=== PATIENT | male | born 1985 | race Caucasian/White ===

== ENCOUNTER 2018-12-31 15:53 | Emergency (ER) | payer SELFPAY ==
[~2018-12-31] VITALS: Ht 180 cm; Wt 82.0 kg
[2018-12-31] MEDS ORDERED: ONDANSETRON 4 MG (ZOFRAN) ORAL DISSOLVE TAB PO ONE (16:30)
[2018-12-31 16:40] LABS: BASOPHILS # (AUTO) 0.1 10^3/uL (0.0-0.1); BASOPHILS % (AUTO) 1 % (0-10); EOSINOPHILS # (AUTO) 0.3 10^3/uL (0.0-0.3); EOSINOPHILS % (AUTO) 3 % (0-10); HEMATOCRIT 40 % (40-54); HEMOGLOBIN 13.9 G/DL (13.3-17.7); LYMPHOCYTES # (AUTO) 2.5 X 10^3 (1.0-4.0); LYMPHOCYTES % (AUTO) 25 % (12-44); MEAN CORPUSCULAR HEMOGLOBIN 29 PG (25-34); MEAN CORPUSCULAR HGB CONC 35 G/DL (32-36); MEAN CORPUSCULAR VOLUME 84 FL (80-99); MEAN PLATELET VOLUME 9.7 FL (7.4-10.4); MONOCYTES # (AUTO) 1.1 X 10^3 (0.0-1.0); MONOCYTES % (AUTO) 12 % (0-12); NEUTROPHILS # (AUTO) 5.9 X 10^3 (1.8-7.8); NEUTROPHILS % (AUTO) 60 % (42-75); PLATELET COUNT 303 10^3/uL (130-400); RED CELL DISTRIBUTION WIDTH 13.3 % (10.0-14.5); WHITE BLOOD COUNT 9.8 10^3/uL (4.3-11.0)
[2018-12-31 16:54] LABS: ALANINE AMINOTRANSFERASE 19 U/L (0-55); ALKALINE PHOSPHATASE 62 U/L (40-136); BILIRUBIN,TOTAL 0.3 MG/DL (0.1-1.0); BUN/CREATININE RATIO 10; CALCIUM 9.2 MG/DL (8.5-10.1); CARBON DIOXIDE 28 MMOL/L (21-32); CHLORIDE 106 MMOL/L (98-107); CREATININE SERUM 0.82 MG/DL (0.60-1.30); GFR ESTIMATED > 60; GLUCOSE 89 MG/DL (70-105); LIPASE 23 U/L (8-78); POTASSIUM 4.2 MMOL/L (3.6-5.0); SODIUM 139 MMOL/L (135-145); TOTAL PROTEIN 6.7 GM/DL (6.4-8.2)
--- NOTE | 2018-12-31 16:57 | ED GI ---
General Chief Complaint: Abdominal/GI Problems Stated Complaint: VOMITTING Nursing Triage Note: PT AMBULATE TO ROOM 07 WITHOUT DIFFICULTY. PT STATES NAUSEA SINCE THIS MORNING AND VOMITED X1 AT WORK [employer] LIGHT. Sepsis Screen: No Definite Risk Source of Information: Patient, Caregiver Exam Limitations: No Limitations History of Present Illness Date Seen by Provider: Dec 31, 2018 Time Seen by Provider: 16:56 Initial Comments To ER by private vehicle with reports of nausea, vomited once at work. This began on the drive home from [place] this morning, feels a little better now. No diarrhea no fevers or chills otherwise fine. Timing/Duration: 4-6 Hours Severity/Quality: Moderate Radiation: No Radiation Activities at Onset: None Allergies and Home Medications Allergies Coded Allergies: Pertussis Vaccines (Verified Allergy, Unknown, 12/31/18) Home Medications Ondansetron 8 Mg Tab.rapdis, 8 MG PO Q6H PRN for NAUSEA/VOMITING-1ST LINE Prescribed by: FABIO RAMOS on 12/31/18 1700 Patient Home Medication List Home Medication List Reviewed: Yes Review of Systems Review of Systems Constitutional: see HPI EENTM: No Symptoms Reported Respiratory: No Symptoms Reported Cardiovascular: No Symptoms Reported Gastrointestinal: See HPI; Denies Abdominal Pain, Denies Constipated, Denies Diarrhea; Nausea, Vomiting Genitourinary: No Symptoms Reported Musculoskeletal: no symptoms reported Skin: no symptoms reported Psychiatric/Neurological: No Symptoms Reported Endocrine: No Symptoms Reported Hematologic/Lymphatic: No Symptoms Reported Past Plvpnxs-Ogpmpw-Nohxte Hx Patient Social History Alcohol Use: Regular Use Alcohol Beverage of Choice: Beer Recreational Drug Use: No Smoking Status: Current Everyday Smoker Type Used: Cigars 2nd Hand Smoke Exposure: Yes Recent Foreign Travel: No Contact w/Someone Who Travel: No Recent Infectious Disease Expo: No Recent Hopitalizations: No Physical Abuse: No Sexual Abuse: No Mistreated: No Fear: No Seasonal Allergies Seasonal Allergies: No Past Medical History Surgeries: Yes (SKIN GRAFT, SCREW PUT IN LEFT WRIST) Respiratory: No Cardiac: No Neurological: Yes (HX OF SEIZURES) Sexually Transmitted Disease: No Genitourinary: No Gastrointestinal: No Musculoskeletal: No Endocrine: No HEENT: No Loss of Vision: Denies Hearing Impairment: Denies Cancer: No Psychosocial: Yes Bipolar Integumentary: No Blood Disorders: No Physical Exam Vital Signs Vital Signs - First Documented 12/31/18 16:10 Temp 36.3 Pulse 77 Resp 16 B/P (MAP) 113/64 (80) Pulse Ox 93 O2 Delivery Room Air Capillary Refill : Less Than 3 Seconds Height/Weight/BMI Height: '" Weight: lbs. oz. kg; 25.00 BMI Method: General Appearance: WD/WN, no apparent distress HEENT: PERRL/EOMI, normal ENT inspection Respiratory: no respiratory distress, no accessory muscle use Cardiovascular: regular rate, rhythm, no murmur Gastrointestinal: normal bowel sounds, non tender, soft Extremities: normal range of motion, non-tender Neurologic/Psychiatric: alert, normal mood/affect, oriented x 3 Skin: normal color, warm/dry ( and) Progress/Results/Core Measures Results/Orders Lab Results Laboratory Tests Test 12/31/18 16:28 Range/Units White Blood Count 9.8 4.3-11.0 10^3/uL Red Blood Count 4.73 4.35-5.85 10^6/uL Hemoglobin 13.9 13.3-17.7 G/DL Hematocrit 40 40-54 % Mean Corpuscular Volume 84 80-99 FL Mean Corpuscular Hemoglobin 29 25-34 PG Mean Corpuscular Hemoglobin Concent 35 32-36 G/DL Red Cell Distribution Width 13.3 10.0-14.5 % Platelet Count 303 130-400 10^3/uL Mean Platelet Volume 9.7 7.4-10.4 FL Neutrophils (%) (Auto) 60 42-75 % Lymphocytes (%) (Auto) 25 12-44 % Monocytes (%) (Auto) 12 0-12 % Eosinophils (%) (Auto) 3 0-10 % Basophils (%) (Auto) 1 0-10 % Neutrophils # (Auto) 5.9 1.8-7.8 X 10^3 Lymphocytes # (Auto) 2.5 1.0-4.0 X 10^3 Monocytes # (Auto) 1.1 H 0.0-1.0 X 10^3 Eosinophils # (Auto) 0.3 0.0-0.3 10^3/uL Basophils # (Auto) 0.1 0.0-0.1 10^3/uL Sodium Level 139 135-145 MMOL/L Potassium Level 4.2 3.6-5.0 MMOL/L Chloride Level 106 98-107 MMOL/L Carbon Dioxide Level 28 21-32 MMOL/L Anion Gap 5 5-14 MMOL/L Blood Urea Nitrogen 8 7-18 MG/DL Creatinine 0.82 0.60-1.30 MG/DL Estimat Glomerular Filtration Rate > 60 BUN/Creatinine Ratio 10 Glucose Level 89 70-105 MG/DL Calcium Level 9.2 8.5-10.1 MG/DL Corrected Calcium 9.2 8.5-10.1 MG/DL Total Bilirubin 0.3 0.1-1.0 MG/DL Aspartate Amino Transf (AST/SGOT) 18 5-34 U/L Alanine Aminotransferase (ALT/SGPT) 19 0-55 U/L Alkaline Phosphatase 62 40-136 U/L Total Protein 6.7 6.4-8.2 GM/DL Albumin 4.0 3.2-4.5 GM/DL Lipase 23 8-78 U/L My Orders Orders - FABIO RAMOS IP TECHNOLOGY TRANSACTIONS ATTORNEY Cbc With Automated Diff (12/31/18 16:30) Comprehensive Metabolic Panel (12/31/18 16:30) Lipase (12/31/18 16:30) Ondansetron Oral Dissolve Tab (Zofran (12/31/18 16:30) Medications Given in ED Current Medications Medications Dose Ordered Sig/Iglesia Route Start Time Stop Time Status Last Admin Dose Admin Ondansetron HCl 8 mg ONCE ONCE PO 12/31/18 16:30 12/31/18 16:32 DC 12/31/18 16:36 8 MG Vital Signs/I&O 12/31/18 16:10 Temp 36.3 Pulse 77 Resp 16 B/P (MAP) 113/64 (80) Pulse Ox 93 O2 Delivery Room Air Blood Pressure Mean: 80 Departure Impression Primary Impression: Nausea and vomiting Disposition: 01 HOME, SELF-CARE Condition: Stable Departure-Patient Inst. Decision time for Depature: 16:58 Referrals: NO,LOCAL PHYSICIAN (PCP/Family) Primary Care Physician Patient Instructions: Nausea and Vomiting, Adult Add. Discharge Instructions: 1. Return to ER for any worsening, follow-up with your doctor later this week for recheck. Nausea medication as needed. Small frequent sips of liquids, Pedialyte or Gatorade are fine. All discharge instructions reviewed with patient and/or family. Voiced understanding. Scripts Ondansetron (Ondansetron Odt) 8 Mg Tab.rapdis 8 MG PO Q6H PRN for NAUSEA/VOMITING-1ST LINE, #10 TAB Prov: FABIO RAMOS APRN 12/31/18 Work/School Note: Work Release Form Date Seen in the Emergency Department: Dec 31, 2018 Return to Work: Jan 01, 2019 FABIO RAMOS APRN Dec 31, 2018 16:57
[2018-12-31] MEDS ORDERED: ONDA8TAB13 PO (17:00)
[2018-12-31 17:09] VITALS: BP 121/70
== END 2018-12-31 17:08 | disposition home or self-care (01) ==
LOC: ER 15:55
DX: R11.2 Nausea with vomiting, unspecified (principal); F31.9 Bipolar disorder, unspecified; F17.290 Nicotine dependence, other tobacco product, uncomplicated; Z88.7 Allergy status to serum and vaccine
CPT/HCPCS: 36415; 80053; 83690; 85025

== ENCOUNTER 2019-01-22 17:48 | Emergency (ER) | payer SELFPAY ==
[~2019-01-22] VITALS: Ht 180 cm; Wt 83.0 kg
[~2019-01-22 17:48] MED LIST: ONDA8TAB13 PO
[2019-01-22 18:41] LABS: BASOPHILS % (AUTO) 0 % (0-10); EOSINOPHILS # (AUTO) 0.2 10^3/uL (0.0-0.3); EOSINOPHILS % (AUTO) 2 % (0-10); HEMATOCRIT 39 % (40-54); HEMOGLOBIN 13.8 G/DL (13.3-17.7); LYMPHOCYTES # (AUTO) 2.7 X 10^3 (1.0-4.0); LYMPHOCYTES % (AUTO) 22 % (12-44); MEAN CORPUSCULAR HEMOGLOBIN 29 PG (25-34); MEAN CORPUSCULAR HGB CONC 35 G/DL (32-36); MEAN CORPUSCULAR VOLUME 82 FL (80-99); MEAN PLATELET VOLUME 10.5 FL (7.4-10.4); MONOCYTES % (AUTO) 8 % (0-12); NEUTROPHILS # (AUTO) 8.2 X 10^3 (1.8-7.8); NEUTROPHILS % (AUTO) 68 % (42-75); PLATELET COUNT 316 10^3/uL (130-400); RED CELL DISTRIBUTION WIDTH 13.3 % (10.0-14.5); WHITE BLOOD COUNT 12.1 10^3/uL (4.3-11.0)
[2019-01-22 18:46] LABS: PROTHROMBIN TIME PATIENT 13.6 SEC (12.2-14.7)
--- NOTE | 2019-01-22 18:50 | Diagnostic Imaging Report ---
INDICATION: Chest pain and shortness of air. TIME OF EXAM: 6:48 p.m. COMPARISON: No prior studies are available for comparison. FINDINGS: The heart size is normal. The pulmonary vascularity is unremarkable. The lungs are clear. No infiltrate, effusion or pneumothorax is detected. IMPRESSION: No acute cardiopulmonary process is detected. Dictated by: Dictated on workstation # [id number]
[2019-01-22 18:57] LABS: ALANINE AMINOTRANSFERASE 25 U/L (0-55); ALBUMIN 4.1 GM/DL (3.2-4.5); ALKALINE PHOSPHATASE 59 U/L (40-136); AMYLASE 43 U/L (25-125); BILIRUBIN,TOTAL 0.3 MG/DL (0.1-1.0); BUN/CREATININE RATIO 19; CALCIUM 9.2 MG/DL (8.5-10.1); CARBON DIOXIDE 20 MMOL/L (21-32); CHLORIDE 105 MMOL/L (98-107); CREATININE SERUM 0.94 MG/DL (0.60-1.30); GFR ESTIMATED > 60; GLUCOSE 140 MG/DL (70-105); LIPASE 16 U/L (8-78); MAGNESIUM 1.9 MG/DL (1.6-2.4); SODIUM 138 MMOL/L (135-145); TOTAL PROTEIN 6.8 GM/DL (6.4-8.2)
[2019-01-22 19:17] LABS: TSH (THYROID ANALYZER) 0.57 UIU/ML (0.35-4.94)
[2019-01-22 19:24] LABS: BILIRUBIN,URINE NEGATIVE (NEGATIVE); CLARITY,URINE CLEAR; COLOR,URINE YELLOW; GLUCOSE, URINE (UA) NEGATIVE (NEGATIVE); KETONES,URINE NEGATIVE (NEGATIVE); LEUKOCYTE ESTERASE ,URINE NEGATIVE (NEGATIVE); NITRITE,URINE NEGATIVE (NEGATIVE); PH,URINE 7 (5-9); PROTEIN,URINE NEGATIVE (NEGATIVE); UROBILINOGEN,URINE NORMAL (NORMAL)
--- NOTE | 2019-01-22 19:30 | ED General ---
General Chief Complaint: Psych/Social Disorder Stated Complaint: CHEST PAIN,SHAKY Nursing Triage Note: AMBULATED TO ROOM 07 WITH COMPLAINTS OF CHEST PAIN ET FEELING TINGLY ALL OVER. STATES HE WAS AT WORK ABOUT AN HOUR AGO WHEN THIS STARTED. HAS A HX OF ANXIETY AND THE LAST TIME THIS HAPPENED IT WAS ANXIETY. Nursing Sepsis Screen: No Definite Risk Source of Information: Patient History of Present Illness Date Seen by Provider: Jan 22, 2019 Time Seen by Provider: 18:30 Initial Comments PT ARRIVES VIA POV STATES HE WAS AT WORK AT [employer], WAS SHOOTING FOAM INTO [employer] DOOR, AND STARTED TO GET REAL SHAKEY STATES HE STARTED HAVING CHEST PAIN, AND WASN'T FEELING GOOD STATES SYMPTOMS BEGAN AROUND 1630 AND ARE NOW GONE CHEST WAS HURTING IN LEFT UPPER/ MIDLINE AREA WAS SHORT OF BREATH NO SWEATS + NAUSEA, NO VOMITING NO COUGH, NO FEVER OR RECENT ILLNESS HAS BEEN EATING AND DRINKING NORMALLY, ATE AROUND 1500 HAS HISTORY OF SAME, A FEW TIMES, BUT NOT THIS BAD. 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 PT HAS HISTORY OF IV DRUG USE, INCLUDING HEROIN, METH, OTHERS PT OCCASIONALLY DRINKS ALCOHOL, NONE RECENTLY PCP: NONE Allergies and Home Medications Allergies Coded Allergies: Pertussis Vaccines (Verified Allergy, Unknown, 12/31/18) Patient Home Medication List Home Medication List Reviewed: Yes Review of Systems Review of Systems Constitutional: see HPI; No chills, No diaphoresis, No dizziness EENTM: no symptoms reported Respiratory: see HPI, short of breath Cardiovascular: see HPI, chest pain; No edema, No palpitations, No syncope, No vascular heart diseas Gastrointestinal: see HPI; No abdominal pain, No constipation, No diarrhea, No loss of appetite; nausea; No vomiting Genitourinary: no symptoms reported Musculoskeletal: no symptoms reported Skin: no symptoms reported Psychiatric/Neurological: Anxiety; Denies Headache, Denies Numbness, Denies Paresthesia, Denies Seizure, Denies Tingling, Denies Weakness Hematologic/Lymphatic: No Symptoms Reported Immunological/Allergic: no symptoms reported Past Dpufgsz-Qdgyrq-Uxpejt Hx Past Med/Social Hx: Reviewed and Corrections made Patient Social History Alcohol Use: Occasionally Uses Alcohol Beverage of Choice: Beer Recreational Drug Use: Yes (+ IV HEROIN, METH, OTHERS. SMOKES MARIJUANA) Drug of Choice: +IV HEROIN, METH, OTHERS. SMOKES MARIJUANA Smoking Status: Current Everyday Smoker (1 PPD) Type Used: Cigars, Cigarettes (1 PPD) 2nd Hand Smoke Exposure: Yes Recent Foreign Travel: No Contact w/Someone Who Travel: No Recent Infectious Disease Expo: No Recent Hopitalizations: No Seasonal Allergies Seasonal Allergies: No Past Medical History Surgeries: Yes (SKIN GRAFT TO RIGHT LEG SECONDARY TO KING, SCREW PUT IN LEFT WRIST/SCAPHOID) Orthopedic Respiratory: No Cardiac: No Neurological: No (HX OF SEIZURES) Sexually Transmitted Disease: No Genitourinary: No Gastrointestinal: No Musculoskeletal: Yes (LEFT SCAPHOID FX/ORIF) Fractures Endocrine: No HEENT: No Loss of Vision: Denies Hearing Impairment: Denies Cancer: No Psychosocial: Yes (POLYSUBSTANCE ABUSE, INCLUDING + IV HEROIN , METH AND OTHERS, USES MARIJUANA. OCCASIONAL ETOH) Anxiety, Bipolar Integumentary: No Blood Disorders: No Physical Exam Vital Signs Vital Signs - First Documented 01/22/19 17:54 Temp 37.1 Pulse 82 Resp 16 B/P (MAP) 143/94 (110) Pulse Ox 99 O2 Delivery Room Air Capillary Refill : Less Than 3 Seconds Height, Weight, BMI Height: '" Weight: lbs. oz. kg; 25.00 BMI Method: General Appearance: No Apparent Distress, WD/WN HEENT: PERRL/EOMI, Other (EXTENSIVE DENTAL DECAY DOWN TO GUMS--"METH MOUTH" APPEARANCE) Neck: Full Range of Motion, Normal Inspection, Non Tender, Supple Respiratory: Normal Breath Sounds, No Accessory Muscle Use, No Respiratory Distress, Other (LEFT UPPER CHEST AND LEFT TRAPEZIUS MUSCLE TENDERNESS--PALPATION REPRODUCES PAIN) Cardiovascular: Regular Rate, Rhythm, No Edema, No JVD, No Murmur, Normal Peripheral Pulses Gastrointestinal: Normal Bowel Sounds, No Organomegaly, No Pulsatile Mass, Non Tender, Soft Back: Normal Inspection Extremity: Normal Capillary Refill, Normal Inspection, Normal Range of Motion, Non Tender, No Calf Tenderness, No Pedal Edema Neurologic/Psychiatric: Alert, Oriented x3, No Motor/Sensory Deficits, Normal Mood/Affect (SOMEWHAT FLAT AFFECT), teacher emotionally impaired II-XII Norm as Tested Skin: Normal Color, Warm/Dry, Tattoos/Piercings (EXTENSIVE TATTOOS OVER ENTIRE BODY) Progress/Results/Core Measures Suspected Sepsis Recent Fever Within 48 Hours: No Infection Criteria Present: None New/Unexplained Altered Menta: No Sepsis Screen: No Definite Risk SIRS Temperature: Pulse: 82 Respiratory Rate: 16 Laboratory Tests 01/22/19 18:02: White Blood Count 12.1H Blood Pressure 143 /94 Mean: 110 Laboratory Tests 01/22/19 18:02: Creatinine 0.94, INR Comment 1.0, Platelet Count 316, Total Bilirubin 0.3 Results/Orders Lab Results My Orders Vital Signs/I&O Capillary Refill : Less Than 3 Seconds Blood Pressure Mean: 110 Progress Note : Progress Note NO SYMPTOMS DURING ER STAY ECG Initial ECG Impression Date: Jan 22, 2019 Initial ECG Impression Time: 17:50 Initial ECG Rate: 88 Initial ECG Rhythm: Normal Sinus Initial ECG Comparisson: No Previous ECG Available Diagnostic Imaging Comments CXR--NO ACUTE PROCESS, PER RADIOLOGIST REPORT AT 1852 Reviewed: Reviewed by Me Departure Impression Primary Impression: Anxiety Additional Impression: Left-sided chest wall pain Disposition: HOME, SELF-CARE Condition: Improved Departure-Patient Inst. Referrals: NO,LOCAL PHYSICIAN (PCP/Family) Primary Care Physician Patient Instructions: Anxiety, Adult (DC), Chest Pain That Is Not Caused by the Heart (DC) Add. Discharge Instructions: HOME, REST LOTS OF CLEAR LIQUIDS ALTERNATE ICE AND HEAT TO AREA AT 20 MINUTE INTERVALS FOLLOW UP WITH DR OF CHOICE IN 2-3 DAYS IF NO BETTER All discharge instructions reviewed with patient and/or family. Voiced understanding. KACIE THOMPSON DO Jan 22, 2019 19:30
[2019-01-22 19:36] LABS: BACTERIA,URINE NEGATIVE /HPF
[2019-01-22 19:40] LABS: AMPHETAMINE SCREEN, URINE NEGATIVE (NEGATIVE); BARBITURATE SCREEN URINE NEGATIVE (NEGATIVE); BENZODIAZEPINES SCREEN URINE NEGATIVE (NEGATIVE); CANNABINOID SCREEN, URINE NEGATIVE (NEGATIVE); COCAINE SCREEN URINE NEGATIVE (NEGATIVE); METHADONE STAT NEGATIVE (NEGATIVE); METHAMPHETAMINE SCREEN URINE S NEGATIVE (NEGATIVE); OPIATE SCREEN URINE NEGATIVE (NEGATIVE); OXYCODONE STAT NEGATIVE (NEGATIVE); PROPOXYPHENE STAT NEGATIVE (NEGATIVE); TRICYCLIC ANTIDEPRESSANTS SCRE NEGATIVE (NEGATIVE)
[2019-01-22 19:54] VITALS: BP 134/89
== END 2019-01-22 19:55 | disposition home or self-care (01) ==
LOC: EDUNIT# 17:48 → ER 17:49
DX: F41.9 Anxiety disorder, unspecified (principal); R07.89 Other chest pain; F31.9 Bipolar disorder, unspecified; F17.210 Nicotine dependence, cigarettes, uncomplicated; F17.290 Nicotine dependence, other tobacco product, uncomplicated; Z91.14 Patient's other noncompliance with medication regimen; Z88.7 Allergy status to serum and vaccine
CPT/HCPCS: 36415; 71046; 80053; 80306; 81000; 82150; 83690; 83735; 83880; 84443; 84484; 85025; 85610; 85730; 93005; 93041

== ENCOUNTER 2021-03-12 13:32 | Emergency (ER) | payer SELFPAY ==
[~2021-03-12] VITALS: Ht 180.3 cm; Wt 83.0 kg
[2021-03-12 13:36] VITALS: BP 129/63
--- NOTE | 2021-03-12 15:03 | ED Upper Extremity ---
General Chief Complaint: Upper Extremity Stated Complaint: RT HAND INJ Nursing Triage Note: PT AMBULATE TO ROOM FSOF WITH C/O RIGHT HAND PAIN AND SWELLING. Source: patient History of Present Illness Date Seen by Provider: Mar 12, 2021 Time Seen by Provider: 15:03 Initial Comments 36-year-old male presenting with complaint of right hand pain and swelling since he fell going up the stairs yesterday. He reports that he hit his hand against the stairs when he fell. He denies he has had losing consciousness. He has had increasing pain and swelling to the pinky finger on the right hand. He is right-hand dominant. He has decreased range of motion of the right pinky finger due to pain and swelling. He has no other injuries from when he fell on the stairs. He was concerned that he had a fracture to his hand. Onset: yesterday Severity: severe Pain/Injury Location: right hand, right 5th finger Method of Injury: fell Modifying Factors: Worse With Movement Allergies and Home Medications Allergies Coded Allergies: Pertussis Vaccines (Verified Allergy, Unknown, 12/31/18) Patient Home Medication List Home Medication List Reviewed: Yes Hydrocodone/Acetaminophen (Hydrocodone-Acetamin 5-325 mg) 1 Each Tablet, 1 TAB PO Q6H PRN for PAIN-SEVERE (8-10) Prescribed by: HERIBERTO WONG on 03/12/21 1531 Review of Systems Constitutional: No chills, No dizziness, No fever EENTM: no symptoms reported Respiratory: no symptoms reported Cardiovascular: no symptoms reported Gastrointestinal: No nausea, No vomiting Musculoskeletal: see HPI, other (Pain to the right hand with swelling just proximal to the MCP joint of his pinky finger) Skin: No change in color Psychiatric/Neurological: Denies Numbness, Denies Paresthesia Past Btnkrdu-Lhbqmn-Zosmym Hx Patient Social History Tobacco Use?: Yes Tobacco type used: Cigarettes Smoking Status: Current Everyday Smoker Smokeless Tobacco Frequency: Never a User Use of E-Cig and/or Vaping dev: No Use of E-Cig and/or Vaping Casey: Never a User Substance use?: No Alcohol Use?: Yes Alcohol Frequency: Once in a while Pt feels they are or have been: No Seasonal Allergies Seasonal Allergies: No Past Medical History Surgeries: Yes (SKIN GRAFT TO RIGHT LEG SECONDARY TO KING, SCREW PUT IN LEFT WRIST/SCAPHOID) Orthopedic Respiratory: No Cardiac: No Neurological: No (HX OF SEIZURES) Sexually Transmitted Disease: No Genitourinary: No Gastrointestinal: No Musculoskeletal: Yes (LEFT SCAPHOID FX/ORIF) Fractures Endocrine: No HEENT: No Loss of Vision: Denies Hearing Impairment: Denies Cancer: No Psychosocial: Yes Anxiety, Bipolar Integumentary: No Blood Disorders: No Physical Exam Vital Signs Vital Signs - First Documented 03/12/21 13:36 Temp 37.0 Pulse 94 Resp 17 B/P (MAP) 129/63 (85) O2 Delivery Room Air Capillary Refill : Less Than 3 Seconds Height, Weight, BMI Height: '" Weight: lbs. oz. kg; 25.00 BMI Method: General Appearance: WD/WN, no apparent distress HEENT: PERRL/EOMI Neck: non-tender, full range of motion, supple, normal inspection Cardiovascular: normal peripheral pulses Shoulder: normal inspection, non-tender, no evidence of injury Elbow/Forearm: normal inspection, non-tender, no evidence of injury, normal ROM Wrist: Yes normal ROM Hand: Right, bone tenderness (Fifth metacarpal just proximal to his MCP joint), limited ROM (Decreased range of motion of his right pinky finger due to pain and swelling), soft tissue tenderness (Swelling to the right hand over the fifth metacarpal just proximal to the MCP joint), swelling (Swelling and tenderness to the right hand just proximal to the fifth MCP joint) Neurologic/Tendon: normal sensation, normal motor functions, normal tendon functions 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 This helped stabilize his fracture of the right fifth metacarpal. He was neurovascular and tendon intact both pre and post splinting. Counseled on follow-up and return precautions. Progress/Results/Core Measures Results/Orders My Orders Orders - HERIBERTO WONG MD Hand 3 View Right (03/12/21 14:44) Vital Signs/I&O 03/12/21 13:36 Temp 37.0 Pulse 94 Resp 17 B/P (MAP) 129/63 (85) O2 Delivery Room Air Blood Pressure Mean: 85 Progress Progress Note : Progress Note X-ray was obtained of the right hand which demonstrated comminuted fracture of the distal shaft of the fifth metacarpal. There is mild angulation of this as well. Counseled patient on results and placed in a ulnar gutter splint with OCL. Patient declined a sling as he states he has 1 in [address] car[address] Advised to keep splint clean and dry until it can be changed out to a cast with orthopedics. Counseled on care management of the splint and fracture. Given information for Dr. Huber in [place] in case he is not able to find a provider and [facility] where he lives to see about his orthopedic injury Diagnostic Imaging Diagonstic Imaging: Xray Plain Films/CT/US/NM/MRI: hand Comments [facility] [place] NAME: KRYSTINA INTERIANO MED REC#: [id number] PT STATUS: DEP ER : 1985 PHYSICIAN: HERIBERTO WONG MD ADMIT DATE: 03/12/21/ER FS Signed Date of Exam:03/12/21 HAND 3 VIEW RIGHT CLINICAL INDICATION: Patient with hand pain and swelling of the right hand. Patient fell yesterday. EXAM: X-ray of the right hand, three views. COMPARISON: None. FINDINGS AND IMPRESSION: 1: There is a minimally oblique fracture across the [id number] diaphysis of the fifth metacarpal bone with mild dorsal apex angulation. There is soft tissue swelling adjacent to the region. 2: There is no other fracture seen. There is no other significant bony abnormality. Dictated by: Dictated on workstation # [id number] Dict: 03/12/21 1518 Trans: 03/12/21 160 AS6 [id number] Interpreted by: IZA SEGURA MD Electronically signed by: IZA SEGURA MD 03/12/21 5470 Reviewed: Reviewed by Me Departure Impression Primary Impression: Nondisplaced fracture of shaft of fifth metacarpal bone, right hand, initial encounter for closed fracture Disposition: 01 HOME, SELF-CARE Condition: Stable Departure-Patient Inst. Decision time for Depature: 15:32 Referrals: NO,LOCAL PHYSICIAN (PCP) Primary Care Physician LALO HUBER MD Patient Instructions: Splint Care ED, Hand Fracture ED Add. Discharge Instructions: Keep splint clean and dry and in place until you see Orthopedics for follow up and to be changed over to a cast. Use the sling to elevate and support your hand and arm to help with pain. Try to keep your hand above heart level to help with pain and swelling. Use ice 20-30 minutes every few hours as needed for pain and swelling. May use Ibuprofen or Naproxen for pain and inflammation. For severe pain use Hydrocodone with Acetaminophen 5/325 mg pills. Call Monday to get appointment with Orthopedics. If you are not able to find an Orthopedics provider in [place] you could call Dr. Lalo Huber in [place] for follow up. His phone number is [phone]. His office is located at the [facility] in [place], [place] in the Orthopedics Clinic. The Orthopedics provider will need to place your hand in a cast. Once some of the swelling has gone down in 5-7 days they will also be able to tell if the angle of the fracture is enough that you need to have any manipulation or surgery done, or just have the cast placed. All discharge instructions reviewed with patient and/or family. Voiced understanding. Scripts Hydrocodone/Acetaminophen (Hydrocodone-Acetamin 5-325 mg) 1 Each Tablet 1 TAB PO Q6H PRN for PAIN-SEVERE (8-10) for 5 Days, #20 TAB 0 Refills Prov: HERIBERTO WONG MD 03/12/21 Work/School Note: Work Release Form Date Seen in the Emergency Department: Mar 12, 2021 Return to Work: Mar 15, 2021 Other Restrictions Listed Below: Wear splint/cast until cleared by Orthopedics. Images Extremities-Upper 1 - Swelling, Tenderness (Tender to palpation with swelling to hand just proximal to 5th MCP joint.) HERIBERTO WONG MD Mar 12, 2021 15:03
--- NOTE | 2021-03-12 15:23 | Diagnostic Imaging Report ---
CLINICAL INDICATION: Patient with hand pain and swelling of the right hand. Patient fell yesterday. EXAM: X-ray of the right hand, three views. COMPARISON: None. FINDINGS AND IMPRESSION: 1: There is a minimally oblique fracture across the [id number] diaphysis of the fifth metacarpal bone with mild dorsal apex angulation. There is soft tissue swelling adjacent to the region. 2: There is no other fracture seen. There is no other significant bony abnormality. Dictated by: Dictated on workstation # [id number]
[2021-03-12] MEDS ORDERED: ACHD5005 PO (15:31)
== END 2021-03-12 15:40 | disposition home or self-care (01) ==
LOC: EDUNIT# 13:32 → ER FS 13:34
DX: S62.356A Nondisplaced fracture of shaft of fifth metacarpal bone, right hand, initial encounter for closed fracture (principal); F17.210 Nicotine dependence, cigarettes, uncomplicated; W22.8XXA Striking against or struck by other objects, initial encounter
CPT/HCPCS: 29125; 73130

== ENCOUNTER → 2021-03-18 | Outpatient (CLI) | payer SELFPAY ==
[~2021-03-18] MED LIST changes: +ACHD5005 PO
== END ==
LOC: ORTHO 10:33
PROVIDERS: ATTEND Orthopaedic Surgery
DX: S62.306A Unspecified fracture of fifth metacarpal bone, right hand, initial encounter for closed fracture (principal); X58.XXXA Exposure to other specified factors, initial encounter
CPT/HCPCS: 99202